=== PATIENT | male | born 1975 | race Caucasian/White ===

== ENCOUNTER 2019-05-20 21:42 | Emergency (ER) | payer OTHER ==
[2019-05-20] MEDS ORDERED: Sodium Chloride 0.9% 1,000 ML IV ONE (21:52)
--- NOTE | 2019-05-20 21:54 | EDM.PDOC ---
ED HPI GENERAL MEDICAL PROBLEM - General Chief Complaint: General Stated Complaint: DISORIENTED Time Seen by Provider: 05/20/19 21:54 Source of Information: Reports: Patient - History of Present Illness INITIAL COMMENTS - FREE TEXT/NARRATIVE: HISTORY AND PHYSICAL: History of present illness: [Patient presents with his , his has a complaint of disoriented She claims he is disoriented as he did not remember her [facility], and had taken a nap at home and could not remember where he slept but he knew that he did sleep He also did not remember talking to a friend last night although he was drinking admits to heavy drinking yesterday, he states that he has had 1-1/2 beers today He has no fever nausea vomiting chills sweats no chest pain shortness breath headache dizziness or palpitation no bowel or urine symptoms Answers all questions appropriately ] Review of systems: As per history of present illness and below otherwise all systems reviewed and negative. Past medical history: As per history of present illness and as reviewed below otherwise noncontributory. Surgical history: As per history of present illness and as reviewed below otherwise noncontributory. Social history: No reported history of drug or alcohol abuse. Family history: As per history of present illness and as reviewed below otherwise noncontributory. Physical exam: HEENT: Atraumatic, normocephalic, pupils reactive, negative for conjunctival pallor or scleral icterus, mucous membranes moist, throat clear, neck supple, nontender, trachea midline. Lungs: Clear to auscultation, breath sounds equal bilaterally, chest nontender. Heart: S1S2, regular, negative for clicks, rubs, or JVD. Abdomen: Soft, nondistended, nontender. Negative for masses or hepatosplenomegaly. Negative for costovertebral tenderness. Pelvis: Stable nontender. Genitourinary: Deferred. Rectal: Deferred. Extremities: Atraumatic, negative for cords or calf pain. Neurovascular unremarkable. Neuro: Awake, alert, oriented. Cranial nerves II through XII unremarkable. Cerebellum unremarkable. Motor and sensory unremarkable throughout. Exam nonfocal. Diagnostics: [CBC CMP UA drug tox alcohol level EKG chest [address] no contrast mini- mental status exam 28 out of 30 Therapeutics: [Saline Labetalol Impression: [ medical screening exam Alcohol use] Definitive disposition and diagnosis as appropriate pending reevaluation and review of above. - Related Data Allergies Allergy/AdvReac Type Severity Reaction Status Date / Time No Known Allergies Allergy Verified 05/20/19 21:51 Home Meds: Home Meds Htn Medication 05/20/19 [History] ED ROS GENERAL - Review of Systems Review Of Systems: See Below ED EXAM, GENERAL - Physical Exam Exam: See Below Course - Vital Signs Last Recorded V/S: Last Vital Signs Temp 97.7 F 05/20/19 23:03 Pulse 90 05/20/19 23:03 Resp 11 L 05/20/19 23:03 BP 148/102 H 05/20/19 23:03 Pulse Ox 96 05/20/19 23:03 - Orders/Labs/Meds Orders: Active Orders 24 hr Category Date Time Status EKG Documentation Completion [RC] STAT Care 05/20/19 21:53 Active Labs: Laboratory Tests 05/20/19 05/20/19 05/20/19 Range/Units 22:03 22:03 22:45 WBC 9.61 (4.0-11.0) K/uL RBC 5.39 (4.50-5.90) M/uL Hgb 16.6 (13.0-17.0) g/dL Hct 48.1 (38.0-50.0) % MCV 89.2 (80.0-98.0) fL MCH 30.8 (27.0-32.0) pg MCHC 34.5 (31.0-37.0) g/dL RDW Std Deviation 40.8 (28.0-62.0) fl RDW Coeff of Will 13 (11.0-15.0) % Plt Count 117 L (150-400) K/uL MPV 11.80 (7.40-12.00) fL Neut % (Auto) 65.1 (48.0-80.0) % Lymph % (Auto) 24.9 (16.0-40.0) % [place] % (Auto) 8.3 (0.0-15.0) % Eos % (Auto) 1.5 (0.0-7.0) % Baso % (Auto) 0.2 (0.0-1.5) % Neut # (Auto) 6.3 H (1.4-5.7) K/uL Lymph # (Auto) 2.4 (0.6-2.4) K/uL [place] # (Auto) 0.8 (0.0-0.8) K/uL Eos # (Auto) 0.1 (0.0-0.7) K/uL Baso # (Auto) 0.0 (0.0-0.1) K/uL Nucleated RBC % 0.0 /100WBC Nucleated RBCs # 0 K/uL Sodium 138 (136-148) mmol/L Potassium 4.2 (3.5-5.1) mmol/L Chloride 101 (98-107) mmol/L Carbon Dioxide 21.3 (21.0-32.0) mmol/L BUN 22 H (7.0-18.0) mg/dL Creatinine 1.0 (0.8-1.3) mg/dL Est Cr Clr Drug Dosing 87.73 mL/min Estimated GFR (MDRD) > 60.0 ml/min Glucose 182 H (74-106) mg/dL Calcium 9.6 (8.5-10.1) mg/dL Total Bilirubin 0.8 (0.2-1.0) mg/dL AST 82 H (15-37) IU/L ALT 127 H (14-63) IU/L Alkaline Phosphatase 49 (46-116) U/L Creatine Kinase 233 (26-308) U/L Troponin I < 0.050 (0.000-0.056) ng/mL Total Protein 8.6 H (6.4-8.2) g/dL Albumin 4.0 (3.4-5.0) g/dL Globulin 4.6 H (2.6-4.0) g/dL Albumin/Globulin Ratio 0.9 (0.9-1.6) Lipase 143 (73-393) U/L Urine Color YELLOW Urine Appearance CLEAR Urine pH 5.5 (5.0-8.0) Ur Specific Casey >= 1.030 (1.001-1.035) Urine Protein TRACE H (NEGATIVE) mg/dL Urine Glucose (UA) NEGATIVE (NEGATIVE) mg/dL Urine Ketones NEGATIVE (NEGATIVE) mg/dL Urine Occult Blood TRACE-INTACT H (NEGATIVE) Urine Nitrite NEGATIVE (NEGATIVE) Urine Bilirubin NEGATIVE (NEGATIVE) Urine Urobilinogen 0.2 (<2.0) EU/dL Ur Leukocyte Esterase NEGATIVE (NEGATIVE) Urine RBC 0-2 (0-2/HPF) Urine WBC 0-2 (0-5/HPF) Ur Epithelial Cells OCCASIONAL (NONE-FEW) Urine Bacteria FEW (NEGATIVE) Coarse Granular Casts 0-2 (NEGATIVE) Urine Opiates Screen (NEGATIVE) Ur Oxycodone Screen (NEGATIVE) Urine Methadone Screen (NEGATIVE) Ur Barbiturates Screen (NEGATIVE) Ur Phencyclidine Scrn (NEGATIVE) Ur Amphetamine Screen (NEGATIVE) U Methamphetamines Scrn (NEGATIVE) U Benzodiazepines Scrn (NEGATIVE) U Cocaine Metab Screen (NEGATIVE) U Marijuana (THC) Screen (NEGATIVE) Ethyl Alcohol 35 mg/dL 05/20/19 Range/Units 22:45 WBC (4.0-11.0) K/uL RBC (4.50-5.90) M/uL Hgb (13.0-17.0) g/dL Hct (38.0-50.0) % MCV (80.0-98.0) fL MCH (27.0-32.0) pg MCHC (31.0-37.0) g/dL RDW Std Deviation (28.0-62.0) fl RDW Coeff of Will (11.0-15.0) % Plt Count (150-400) K/uL MPV (7.40-12.00) fL Neut % (Auto) (48.0-80.0) % Lymph % (Auto) (16.0-40.0) % [place] % (Auto) (0.0-15.0) % Eos % (Auto) (0.0-7.0) % Baso % (Auto) (0.0-1.5) % Neut # (Auto) (1.4-5.7) K/uL Lymph # (Auto) (0.6-2.4) K/uL [place] # (Auto) (0.0-0.8) K/uL Eos # (Auto) (0.0-0.7) K/uL Baso # (Auto) (0.0-0.1) K/uL Nucleated RBC % /100WBC Nucleated RBCs # K/uL Sodium (136-148) mmol/L Potassium (3.5-5.1) mmol/L Chloride (98-107) mmol/L Carbon Dioxide (21.0-32.0) mmol/L BUN (7.0-18.0) mg/dL Creatinine (0.8-1.3) mg/dL Est Cr Clr Drug Dosing mL/min Estimated GFR (MDRD) ml/min Glucose (74-106) mg/dL Calcium (8.5-10.1) mg/dL Total Bilirubin (0.2-1.0) mg/dL AST (15-37) IU/L ALT (14-63) IU/L Alkaline Phosphatase (46-116) U/L Creatine Kinase (26-308) U/L Troponin I (0.000-0.056) ng/mL Total Protein (6.4-8.2) g/dL Albumin (3.4-5.0) g/dL Globulin (2.6-4.0) g/dL Albumin/Globulin Ratio (0.9-1.6) Lipase (73-393) U/L Urine Color Urine Appearance Urine pH (5.0-8.0) Ur Specific Casey (1.001-1.035) Urine Protein (NEGATIVE) mg/dL Urine Glucose (UA) (NEGATIVE) mg/dL Urine Ketones (NEGATIVE) mg/dL Urine Occult Blood (NEGATIVE) Urine Nitrite (NEGATIVE) Urine Bilirubin (NEGATIVE) Urine Urobilinogen (<2.0) EU/dL Ur Leukocyte Esterase (NEGATIVE) Urine RBC (0-2/HPF) Urine WBC (0-5/HPF) Ur Epithelial Cells (NONE-FEW) Urine Bacteria (NEGATIVE) Coarse Granular Casts (NEGATIVE) Urine Opiates Screen NEGATIVE (NEGATIVE) Ur Oxycodone Screen NEGATIVE (NEGATIVE) Urine Methadone Screen NEGATIVE (NEGATIVE) Ur Barbiturates Screen NEGATIVE (NEGATIVE) Ur Phencyclidine Scrn NEGATIVE (NEGATIVE) Ur Amphetamine Screen NEGATIVE (NEGATIVE) U Methamphetamines Scrn NEGATIVE (NEGATIVE) U Benzodiazepines Scrn NEGATIVE (NEGATIVE) U Cocaine Metab Screen NEGATIVE (NEGATIVE) U Marijuana (THC) Screen NEGATIVE (NEGATIVE) Ethyl Alcohol mg/dL Meds: Medications Discontinued Medications Generic Name Dose Route Start Last Admin Trade Name Freq PRN Reason Stop Dose Admin Sodium Chloride 1,000 mls @ 999 mls/hr 05/20/19 21:52 05/20/19 21:52 Normal Saline IV 05/20/19 22:52 999 mls/hr STAT ONE Administration Labetalol HCl 20 mg 05/20/19 22:34 05/20/19 22:53 Normodyne IVPUSH 05/20/19 22:35 20 mg ONETIME ONE Administration Protocol Departure - Departure Time of Disposition: 23:11 Disposition: Home, Self-Care 01 Condition: Good Clinical Impression: Encounter for medical screening examination - Discharge Information Referrals: PCP,Unknown [Primary Care Provider] - Forms: ED Department Discharge Additional Instructions: The following information is given to patients seen in the emergency department who are being discharged to home. This information is to outline your options for follow-up care. We provide all patients seen in our emergency department with a follow-up referral. The need for follow-up, as well as the timing and circumstances, are variable depending upon the specifics of your emergency department visit. If you don't have a primary care physician on staff, we will provide you with a referral. We always advise you to contact your personal physician following an emergency department visit to inform them of the circumstance of the visit and for follow-up with them and/or the need for any referrals to a consulting specialist. The emergency department will also refer you to a specialist when appropriate. This referral assures that you have the opportunity for follow-up care with a specialist. All of these measure are taken in an effort to provide you with optimal care, which includes your follow-up. Under all circumstances we always encourage you to contact your private physician who remains a resource for coordinating your care. When calling for follow-up care, please make the office aware that this follow-up is from your recent emergency room visit. If for any reason you are refused follow-up, please contact the [facility] emergency department at and asked to speak to the emergency department charge nurse. - My Orders Last 24 Hours: My Active Orders 05/20/19 21:53 EKG Documentation Completion [RC] STAT - Assessment/Plan Last 24 Hours: My Active Orders 05/20/19 21:53 EKG Documentation Completion [RC] STAT
[2019-05-20 22:33] LABS: CHLORIDE,CL 101 mmol/L (98-107); SODIUM,NA 138 mmol/L (136-148)
[2019-05-20] MEDS ORDERED: Labetalol 100 MG/20 ML MDV IVPUSH ONE (22:34)
--- NOTE | 2019-05-20 23:00 | CT ---
CT HEAD DATE: 05/20/2019 CLINICAL HISTORY: Patient with altered mental status. TECHNIQUE: Standard CT scanning of the head was performed. COMPARISON: None. FINDINGS: There is no intracranial hemorrhage. The jason matter-white matter differentiation is intact. The size of the ventricular system is normal for age. There is no mass effect or midline shift. The calvarium is unremarkable. The orbits are unremarkable. The paranasal sinuses are unremarkable. The mastoid air cells are unremarkable. The soft tissues are unremarkable. IMPRESSION: Normal head CT. Please note that all CT scans at this facility use dose modulation, iterative reconstruction, and/or weight-based dosing when appropriate to reduce radiation dose to as low as reasonably achievable. Dictated by: Juan M Hein MD @ 05/20/2019 22:58:06 (Electronically Signed)
--- NOTE | 2019-05-20 23:07 | CR ---
INDICATION: Memory loss while drinking TECHNIQUE: Chest radiograph 1 view COMPARISON: None FINDINGS: Mediastinum: The mediastinum is normal in appearance. The heart silhouette is normal in size and morphology. Lung: Both lungs are unremarkable in appearance. No sign of pleural effusion seen. No pneumothorax is identified. IMPRESSION: 1. No acute cardiopulmonary disease is seen. Dictated by: Tacos Britton MD @ 05/20/2019 23:05:42 (Electronically Signed)
== END 2019-05-20 23:40 | disposition home or self-care (01) ==
LOC: MW.ED 21:42
DX: Z13.9 Encounter for screening, unspecified (principal); Z72.89 Other problems related to lifestyle
CPT/HCPCS: 36415; 70450; 71045; 80053; 80305; 81001; 82550; 83690; 84484; 85025; 93005; 96361; 96374; 99285; G0480; J3490; J7040; 99284

== ENCOUNTER 2020-11-13 16:16 | Emergency (ER) | payer OTHER ==
--- NOTE | 2020-11-13 16:52 | EDM.PDOC ---
ED HPI GENERAL MEDICAL PROBLEM - General Chief Complaint: General Stated Complaint: POSSIBLE EAR INFECTION Time Seen by Provider: 11/13/20 16:31 - History of Present Illness INITIAL COMMENTS - FREE TEXT/NARRATIVE: Patient is a 45-year-old male with history of hypertension and hyperlipidemia he denies a history of diabetes. He is presenting with worsening right ear pain and new facial palsy. The patient states that he had significant right ear discomfort and 3 days ago and was diagnosed with a right-sided otitis with ruptured eardrum he has been on amoxicillin as well as otic drops. He has had worsening pain and significant otorrhea. Starting today the patient noticed gradually worsening right facial numbness and then a right facial palsy with difficulty fully closing his eye and an asymmetric smile. No fevers no neck pain no headache and 8 out of 10 constant right ear pain without exacerbating or alleviating factors it radiates throughout the right face. Patient also reports a sensation of numbness on the right side of the tongue though he feels like this may be improving. R ear Pain Score (Numeric/FACES): 8 - Related Data Allergies Allergy/AdvReac Type Severity Reaction Status Date / Time No Known Allergies Allergy Verified 11/13/20 16:31 Home Meds: Home Meds Amoxicillin 250 mg PO 11/13/20 [History] Amoxicillin/Clavulanate K [Augmentin 875-125 MG] 1 tab PO BID 10 Days #20 tablet 11/13/20 [Rx] Ciprofloxacin/Dexamethasone [Ciprodex Otic Susp] 4 drop OT BID 10 Days #1 bottle 11/13/20 [Rx] Metoprolol Succinate/HCTZ [Dutoprol 100-12.5 mg Tablet] 1 tab PO DAILY 11/13/20 [History] Rosuvastatin [Crestor] 20 mg PO DAILY 11/13/20 [History] Past Medical History Cardiovascular History: Reports: High Cholesterol, Hypertension Other Musculoskeletal History: L radial sx - Infectious Disease History Infectious Disease History: Reports: Chicken Pox - Past Surgical History Cardiovascular Surgical History: Reports: None Social & Family History - Family History Family Medical History: No Pertinent Family History - Caffeine Use Caffeine Use: Reports: Coffee - Recreational Drug Use Recreational Drug Use: No ED ROS GENERAL - Review of Systems Review Of Systems: See Below Free Text/Narrative/Comment: General: No fever. Skin: No rash. Eyes: No vision problems. ENT: Per HPI Neck: No neck stiffness. Respiratory: No shortness of breath. Cardiac: No chest pain. Gastrointestinal: No nausea, vomiting or abdominal pain. Urinary: No dysuria. Musculoskeletal: No myalgias/arthralgias. Neurologic: Per HPI ED EXAM, GENERAL - Physical Exam Exam: See Below Free Text/Narrative:: General Appearance: No acute distress, appears comfortable Skin: No rash HEENT: Normocephalic/atraumatic, sclera anicteric, mucous membranes moist, right TM with significant white otorrhea no mastoid tenderness positive TMJ tenderness Neck: Normal range of motion Back: Normal Musculoskeletal: No edema or tenderness Neurologic: Extraocular movements intact, there is a mild right facial palsy that involves the forehead sensation is intact Psychiatric: Appropriate, cooperative Course - Vital Signs Last Recorded V/S: Last Vital Signs Temp 97.8 F 11/13/20 16:36 Pulse 73 11/13/20 18:38 Resp 18 11/13/20 18:38 BP 138/92 H 11/13/20 18:38 Pulse Ox 92 L 11/13/20 18:38 - Orders/Labs/Meds Labs: Laboratory Tests 11/13/20 11/13/20 Range/Units 16:53 16:53 WBC 7.44 (4.0-11.0) K/uL RBC 5.24 (4.50-5.90) M/uL Hgb 15.3 (13.0-17.0) g/dL Hct 45.1 (38.0-50.0) % MCV 86.1 (80.0-98.0) fL MCH 29.2 (27.0-32.0) pg MCHC 33.9 (31.0-37.0) g/dL RDW Std Deviation 40.7 (28.0-62.0) fl RDW Coeff of Will 13 (11.0-15.0) % Plt Count 204 (150-400) K/uL MPV 10.60 (7.40-12.00) fL Neut % (Auto) 53.6 (48.0-80.0) % Lymph % (Auto) 32.3 (16.0-40.0) % [place] % (Auto) 10.6 (0.0-15.0) % Eos % (Auto) 3.4 (0.0-7.0) % Baso % (Auto) 0.1 (0.0-1.5) % Neut # (Auto) 4.0 (1.4-5.7) K/uL Lymph # (Auto) 2.4 (0.6-2.4) K/uL [place] # (Auto) 0.8 (0.0-0.8) K/uL Eos # (Auto) 0.3 (0.0-0.7) K/uL Baso # (Auto) 0.0 (0.0-0.1) K/uL Nucleated RBC % 0.0 /100WBC Nucleated RBCs # 0 K/uL Sodium 142 (136-148) mmol/L Potassium 3.6 (3.5-5.1) mmol/L Chloride 101 (98-107) mmol/L Carbon Dioxide 33.8 H (21.0-32.0) mmol/L BUN 12 (7.0-18.0) mg/dL Creatinine 0.9 (0.8-1.3) mg/dL Est Cr Clr Drug Dosing 98.95 mL/min Estimated GFR (MDRD) > 60.0 ml/min Glucose 106 (74-106) mg/dL Calcium 9.9 (8.5-10.1) mg/dL Meds: Medications Discontinued Medications Generic Name Dose Route Start Last Admin Trade Name Freq PRN Reason Stop Dose Admin Iopamidol 50 ml 11/13/20 17:43 11/13/20 17:43 Isovue Multipack-370 (76%) IVPUSH 11/13/20 17:44 50 ml ONETIME STA Administration Morphine Sulfate 4 mg 11/13/20 18:18 11/13/20 18:36 Morphine IVPUSH 11/13/20 18:19 4 mg ONETIME ONE Administration Ondansetron HCl 4 mg 11/13/20 18:18 11/13/20 18:36 Zofran IVPUSH 11/13/20 18:19 4 mg ONETIME ONE Administration Departure - Departure Time of Disposition: 19:03 Disposition: Home, Self-Care 01 Condition: Good Clinical Impression: Otitis externa - Discharge Information *PRESCRIPTION DRUG MONITORING PROGRAM REVIEWED*: Not Applicable *COPY OF PRESCRIPTION DRUG MONITORING REPORT IN PATIENT RICCI: Not Applicable Prescriptions: Amoxicillin/Clavulanate K [Augmentin 875-125 MG] 1 tab PO BID 10 Days #20 tablet Ciprofloxacin/Dexamethasone [Ciprodex Otic Susp] 4 drop OT BID 10 Days #1 bottle Instructions: Otitis Externa, [id number] Forms: ED Department Discharge Additional Instructions: Please be sure to use the erythromycin ointment and tape your right eyelid shut each night as directed. You should start to see symptom improvement over the next 2 to 3 days. If your symptoms worsen or you pain becomes more severe you can either return to this emergency department or present to the ER in [place] where Dr. Ricketts the surgical lead is promotional advertising assistant. If you are doing well please be sure to see Dr. Ricketts in his clinic in 7 days. Please call tomorrow to make that appointment. Dr. Bucky Ricketts - Otolaryngology [address] [facility] [address], [place], [place] [id number] [phone] The following information is given to patients seen in the emergency department who are being discharged to home. This information is to outline your options for follow-up care. We provide all patients seen in our emergency department with a follow-up referral. The need for follow-up, as well as the timing and circumstances, are variable depending upon the specifics of your emergency department visit. If you don't have a primary care physician on staff, we will provide you with a referral. We always advise you to contact your personal physician following an emergency department visit to inform them of the circumstance of the visit and for follow-up with them and/or the need for any referrals to a consulting specialist. The emergency department will also refer you to a specialist when appropriate. This referral assures that you have the opportunity for follow-up care with a specialist. All of these measure are taken in an effort to provide you with optimal care, which includes your follow-up. Under all circumstances we always encourage you to contact your private physician who remains a resource for coordinating your care. When calling for follow-up care, please make the office aware that this follow-up is from your recent emergency room visit. If for any reason you are refused follow-up, please contact the [facility] Emergency Department at and asked to speak to the emergency department charge nurse. Sepsis Event Note (ED) - Evaluation Sepsis Screening Result: No Definite Risk - Focused Exam Vital Signs: Vital Signs Temp Pulse Resp BP Pulse Ox 11/13/20 18:38 73 18 138/92 H 92 L 11/13/20 16:36 97.8 F 74 18 173/112 H 96 - Assessment/Plan Assessment:: 45-year-old male presenting with signs and symptoms that are most concerning for potential malignancy otitis externa with facial nerve involvement. Involvement of the forehead and overall clinical picture makes CVA very unlikely. CBC and BMP ordered and patient will need CT scan I would do a noncontrast brain as well as a CT scan of the temporal bone. Anticipate potential need to discuss with otolaryngology. 184: Pt's WBC is normal. CT with acute intracranial pathology. CT demonstrates debris in the EAC on the right with hypopneumatization of the mastoid air cells but no jefferson destruction. As we do not have otolaryngology coverage here I contacted [facility] who has the nearest on-call ENT. 1899: Patient was discussed in full with Dr. Ricketts the hydropulper operator on-call at [facility]. Given the CT imaging and the exam findings Dr. Ricketts recommends Ciprodex 4 drops twice daily Augmentin 875 twice daily for 10 days as well as prednisone 60 mg for 7 days followed by a taper. Patient can follow-up with Dr. Ricketts in clinic in 7 days. However, if the symptoms do not improve or they worsen that will be important for the patient to be seen in in the ED in [facility] so that Dr. Ricketts can potentially evaluate the patient. I discussed this plan of care in detail as well as the erythromycin ophthalmic ointment and taping his eyelid shut. The patient expressed understanding of all of this and agreement with the plan.
[2020-11-13 17:18] LABS: BLOOD UREA NITROGEN,BUN 12 mg/dL (7.0-18.0); CARBON DIOXIDE,CO2 33.8 mmol/L (21.0-32.0); CHLORIDE,CL 101 mmol/L (98-107); GLUCOSE RANDOM 106 mg/dL (74-106); POTASSIUM,K 3.6 mmol/L (3.5-5.1); SODIUM,NA 142 mmol/L (136-148)
[2020-11-13] MEDS ORDERED: Iopamidol 755 MG/ML 500 ML Multipack Bottle IVPUSH STA (17:43)
[2020-11-13] MEDS ORDERED: Ondansetron 4 MG/2 ML SDV IVPUSH ONE (18:18)
[2020-11-13] MEDS ORDERED: Morphine 4 MG/ML Syringe IVPUSH ONE (18:18)
--- NOTE | 2020-11-13 18:41 | CT ---
Indication: Right otitis externa with facial palsy Technique: Volumetric multidetector CT images of the head were obtained with and without the administration of low osmolar intravenous contrast. 50 cc Isovue 370 Comparison: CT head May 20, 2019 Findings: There is no intra-axial or extra-axial fluid collection. There is no mass effect or midline shift. The ventricles and sulci are normal in size and position for age. The brain parenchyma is normal in attenuation with preserved jason-white differentiation. There is no evidence of abnormal contrast enhancement. The orbits and their contents are grossly within normal limits. The bony calvarium is grossly intact. The paranasal sinuses are clear. There is demonstration of moderate thickening of the right external auditory canal with bubbly secretions and fluid within the canal. There is complete opacification of the middle ear. There is hypo pneumatization of the mastoid air cells. There is no significant fluid. There is no evidence of obvious bony erosion. Impression: No acute intracranial abnormality. Demonstration of mild to moderate thickening of the external auditory canal with bubbly secretion as well as complete opacification of the middle ear. No evidence of obvious bony erosion. Please note that all CT scans at this facility use dose modulation, iterative reconstruction, and/or weight-based dosing when appropriate to reduce radiation dose to as low as reasonably achievable. Dictated by Mayco Sarmiento MD @ Nov 13 2020 6:09PM Signed by Dr. Mayco Sarmiento @ Nov 13 2020 6:39PM
[2020-11-13] MEDS ORDERED: Erythromycin Base 0.5% Ophth Oint 1 GM Tube EYERT ONE (19:14)
[2020-11-13] MEDS ORDERED: Acetaminophen/oxyCODONE 325-5 MG Tab PO ONE ×2 (19:33→19:35)
== END 2020-11-13 19:48 | disposition home or self-care (01) ==
LOC: MW.ED 16:16
DX: H60.91 Unspecified otitis externa, right ear (principal); E78.5 Hyperlipidemia, unspecified; I10 Essential (primary) hypertension; Z79.899 Other long term (current) drug therapy
CPT/HCPCS: 36415; 70470; 80048; 85025; 96374; 96375; 99283; A9270; J2270; J2405; Q9967

== ENCOUNTER 2025-10-23 07:42 | Day surgery (SDC) | payer BC ==
[2025-10-23] MEDS ORDERED: propofoL 500 MG/50 ML 50 ML ONE (07:49)
[2025-10-23] MEDS: Lactated Ringers 1,000 ML IV SCH (08:05)
[2025-10-23] MEDS ORDERED: Lactated Ringers 1,000 ML IV SCH (09:30)
== END 2025-10-23 10:00 | disposition home or self-care (01) ==
LOC: MW.SDS 07:42
PROVIDERS: ATTEND Surgery
DX: Z12.11 Encounter for screening for malignant neoplasm of colon (principal); E78.00 Pure hypercholesterolemia, unspecified; I10 Essential (primary) hypertension; E11.9 Type 2 diabetes mellitus without complications; E66.9 Obesity, unspecified; Z68.35 Body mass index [BMI] 35.0-35.9, adult; Z79.899 Other long term (current) drug therapy
CPT/HCPCS: 45378; J2003; J2704; J7120; 00812